=== PATIENT | female | born 1990 | race Caucasian/White ===

== ENCOUNTER → 2018-04-04 | Outpatient (CLI) | payer OTHER ==
[~2018-04-04] MED LIST: ACET500 PO; AMOX500 PO; BLOOD PRESSURE; CEPH500 PO; CIPR250 PO; CLON.5 PO; CRUTCH3 USE; DIBU30TO PR; ERGO400 PO; ERGO50000 PO; GABA100 PO; HYDACE5 PO; Hair, Skin & N1 EACH PO; LITH300C PO; MEDR150I IM; MELO7.5 PO; METR500 PO; MONT4 PO; MULVITMINE PO; NAPR500 PO; NITR100CA PO; ONDA4 PO; ONDA4ODT MM; ONDA8 PO; OXYACE5T PO; PHENA200 PO; PRAHYD1AE TOP; PRAZ1 PO; PREN-16 PO; PROBIOTIC1 EAC1 PO; PROM25 PO; PSEU120ER PO; TRAZ50 PO; VENL37.5 PO; VENL75ER PO; Xanax0.5 MG PO; [UNRECOGNIZED DRUG - OTHER]
[2018-04-07 23:10] LABS: CHLAMYDIA TRACHOMATIS, NAA Negative (Negative); NEISSERIA GONORRHOEAE, NAA Negative (Negative)
== END | disposition home or self-care (01) ==
LOC: LAB SHORT 16:19 → OLS 16:19
PROVIDERS: Nurse Practitioner Women's Health
DX: Z11.3 Encounter for screening for infections with a predominantly sexual mode of transmission (principal); Z12.4 Encounter for screening for malignant neoplasm of cervix
CPT/HCPCS: 87491; 87591; 87624; G0123

== ENCOUNTER 2018-05-08 19:35 | Emergency (ER) | payer OTHER ==
[~2018-05-08] VITALS: Ht 162.6 cm; Wt 122.5 kg
[2018-05-08] MEDS ORDERED: LAMO100 PO (19:41)
[2018-05-08] MEDS ORDERED: PRAZ2 PO (19:41)
[2018-05-08] MEDS ORDERED: DULO30 (19:41)
[2018-05-08] MEDS ORDERED: TRAZ50 PO (19:41)
== END 2018-05-08 20:18 | disposition home or self-care (01) ==
LOC: ER 19:35
DX: S93.402A Sprain of unspecified ligament of left ankle, initial encounter (principal); F32.9 Major depressive disorder, single episode, unspecified; Z88.2 Allergy status to sulfonamides; Z91.040 Latex allergy status; Z91.018 Allergy to other foods; Z91.048 Other nonmedicinal substance allergy status; Z79.899 Other long term (current) drug therapy; W19.XXXA Unspecified fall, initial encounter
CPT/HCPCS: 73610; 99283-25

== ENCOUNTER 2018-10-15 11:18 | Emergency (ER) | payer OTHER ==
[~2018-10-15] VITALS: Ht 162.6 cm; Wt 110.7 kg
[~2018-10-15 11:18] MED LIST changes: +DULO30; +LAMO100 PO; +PRAZ2 PO
[2018-10-15] MEDS ORDERED: CHLO10T PO (12:11)
[2018-10-15] MEDS ORDERED: CLON.1 PO (12:11)
== END 2018-10-15 12:52 | disposition home or self-care (01) ==
LOC: ER 11:18
DX: G43.909 Migraine, unspecified, not intractable, without status migrainosus (principal); Z88.2 Allergy status to sulfonamides; Z91.040 Latex allergy status; Z88.8 Allergy status to other drugs, medicaments and biological substances; Z91.018 Allergy to other foods; Z79.899 Other long term (current) drug therapy; F31.9 Bipolar disorder, unspecified; F43.10 Post-traumatic stress disorder, unspecified
CPT/HCPCS: 96374; 96375; 99283-25; J0780; J1200; J1885; J7120

== ENCOUNTER → 2018-10-18 | Outpatient (CLI) | payer OTHER ==
[~2018-10-18] MED LIST changes: +Ambien5 MG PO; +CHLO10T PO; +CLON.1 PO; +DULO60; +IBUP400
== END | disposition home or self-care (01) ==
LOC: LAB 17:49 → LAB SHORT 17:49
DX: N89.8 Other specified noninflammatory disorders of vagina (principal)
CPT/HCPCS: 87070; 87147; 87205

== ENCOUNTER 2018-10-25 17:31 | Emergency (ER) | payer OTHER ==
[~2018-10-25] VITALS: Ht 162.6 cm; Wt 111.1 kg
[~2018-10-25 17:31] MED LIST changes: -Ambien5 MG PO; -DULO60; -IBUP400
[2018-10-25] MEDS ORDERED: DULO60 (17:44)
[2018-10-25 18:11] LABS: BASOPHILS ABSOLUTE AUTO 0.03 K/mm3 (0.00-0.23); BASOPHILS PERCENT AUTO 0 % (0-2); EOSINOPHILS ABSOLUTE AUTO 0.03 K/mm3 (0.00-0.68); EOSINOPHILS PERCENT AUTO 0 % (0-6); Hematocrit 42.2 % (33.0-51.0); Hemoglobin 13.7 g/dL (11.5-16.0); IMMATURE GRAN ABSOLUTE AUTO 0.05 K/mm3 (0.00-0.10); IMMATURE GRAN PERCENT AUTO 0 % (0-1); LYMPHOCYTES ABSOLUTE AUTO 1.55 K/mm3 (0.84-5.20); LYMPHOCYTES PERCENT AUTO 11 % (21-46); MONOCYTES ABSOLUTE AUTO 0.75 K/mm3 (0.16-1.47); MONOCYTES PERCENT AUTO 5 % (4-13); Mean Corpuscular HGB 27.3 pg (26.0-34.0); Mean Corpuscular HGB Conc 32.5 g/dL (31.5-36.5); Mean Corpuscular Volume 84 fL (80-100); Mean Platelet Volume 9.7 fL (9.1-12.4); NEUTROPHILS ABSOLUTE AUTO 11.87 K/mm3 (1.96-9.15); NEUTROPHILS PERCENT AUTO 83 % (41-73); Platelet Count 353 K/mm3 (150-400); RDW Coefficient Variation 13.7 % (11.7-14.2); RDW Standard Deviation 42.2 fL (35.1-46.3); Red Blood Cell Count 5.01 M/mm3 (3.80-5.20); White Blood Cell Count 14.28 K/mm3 (4.00-11.30)
[2018-10-25 18:41] LABS: Alanine Aminotransfer (ALT/SGP 13 U/L (12-78); Albumin, Blood 3.8 g/dL (3.4-5.0); Albumin/Globulin Ratio 0.9 (0.8-1.8); Alk Phos 133 U/L (50-136); Anion Gap 6 mmol/L (6-16); Aspartate Aminotrans (AST/SGOT 10 U/L (12-37); Bilirubin, Total 0.7 mg/dL (0.1-1.0); Blood Urea Nitrogen 11 mg/dL (8-24); Bun/Creatinine Ratio 10.7 (12.0-20.0); CO2, Blood 25 mmol/L (21-32); Calcium, Blood 8.8 mg/dL (8.5-10.1); Chloride, Blood 106 mmol/L (98-108); Creatinine, Blood 1.03 mg/dL (0.40-1.00); Globulin, Blood 4.2 g/dL (2.2-4.0); Glomerular Filtration Rate >60 (60-); Glucose, Blood 105 mg/dL (70-99); Potassium, Blood 3.5 mmol/L (3.5-5.5); Sodium, Blood 137 mmol/L (136-145)
[2018-10-25 19:23] LABS: U Amphetamine Screen Not Detected; U Barbituate Screen Not Detected; U Benzodiazapine Screen Not Detected; U Buprenorphine Screen Not Detected; U Cannabinoids Screen Not Detected; U Cocaine Screen Not Detected; U Methadone Screen Not Detected; U Methamphetamine Screen Not Detected; U Opiates Screen Not Detected; U Oxycodone Screen Not Detected; U Phencyclidine Screen Not Detected; U Propoxyphene Screen Not Detected
[2018-10-25] MEDS ORDERED: Ambien5 MG PO (21:03)
== END 2018-10-25 21:16 | disposition home or self-care (01) ==
LOC: ER 17:31
PROVIDERS: Physician Assistant
DX: F32.9 Major depressive disorder, single episode, unspecified (principal); Z88.2 Allergy status to sulfonamides; Z88.8 Allergy status to other drugs, medicaments and biological substances; Z91.040 Latex allergy status; Z91.018 Allergy to other foods; Z79.899 Other long term (current) drug therapy; G43.909 Migraine, unspecified, not intractable, without status migrainosus
CPT/HCPCS: 80053; 85025; 99284; Q3014

== ENCOUNTER 2018-11-02 11:33 | Emergency (ER) | payer OTHER ==
[~2018-11-02] VITALS: Ht 165.1 cm; Wt 90.7 kg
[~2018-11-02 11:33] MED LIST changes: +Ambien5 MG PO; +DULO60
[2018-11-03] MEDS ORDERED: IBUP400 (11:26)
== END 2018-11-02 13:22 | disposition home or self-care (01) ==
LOC: ER 11:33
DX: S83.91XA Sprain of unspecified site of right knee, initial encounter (principal); S93.401A Sprain of unspecified ligament of right ankle, initial encounter; F31.9 Bipolar disorder, unspecified; F43.10 Post-traumatic stress disorder, unspecified; Z88.2 Allergy status to sulfonamides; Z91.02 Food additives allergy status; Z91.040 Latex allergy status; W10.9XXA Fall (on) (from) unspecified stairs and steps, initial encounter
CPT/HCPCS: 29505; 73564; 73610; 99283-25

== ENCOUNTER 2018-11-03 09:48 | Day surgery (SDC) | payer OTHER ==
[~2018-11-03] VITALS: Ht 162.6 cm; Wt 110.9 kg
--- NOTE | 2018-11-03 11:19 | NUR ---
11/03/18 1119 Anastasia Chow PT UPDATED IN LOBBY BY RXS AND MATT RIVERA OF DELAY IN ADMIT.
[2018-11-03] MEDS ORDERED: IBUP400 (11:26)
--- NOTE | 2018-11-03 14:38 | NUR ---
11/03/18 1437 Jarek Lamb PATIENT INTO SDU, RESTING IN RECLINER, REPORTING 7/10 PAIN, PER MD ORDERS GAVE IV PAIN MEDICATION, WILL CONTINUE TO MONITOR. PATIENT VSS, TOLERATING PO FLUIDS WELL PATIENTS IS AT CHAIRSIDE
== END 2018-11-03 15:50 | disposition home or self-care (01) ==
LOC: ORSCSDS 09:48
PROVIDERS: Orthopaedic Surgery
PROC: 0MQR0ZZ Repair Left Ankle Bursa and Ligament, Open Approach (ICD-10-PCS; principal; 2018-11-03 11:05)
PROC: 0SBG4ZZ Excision of Left Ankle Joint, Percutaneous Endoscopic Approach (ICD-10-PCS; principal; 2018-11-03 11:05)
DX: S93.402A Sprain of unspecified ligament of left ankle, initial encounter (principal); M65.9 Synovitis and tenosynovitis, unspecified; E66.01 Morbid (severe) obesity due to excess calories; Z68.41 Body mass index [BMI] 40.0-44.9, adult; F31.9 Bipolar disorder, unspecified; Z79.899 Other long term (current) drug therapy
CPT/HCPCS: C1713; J0171; J0690; J1100; J1885; J2250; J2405; J2795; J3010; J7120

== ENCOUNTER → 2018-11-10 | Outpatient (CLI) | payer OTHER ==
[~2018-11-10] MED LIST changes: +IBUP400
== END | disposition home or self-care (01) ==
LOC: LAB SHORT 17:34 → LAB 17:34
DX: N89.8 Other specified noninflammatory disorders of vagina (principal)
CPT/HCPCS: 87070; 87147; 87205

== ENCOUNTER 2019-02-19 19:13 | Emergency (ER) | payer OTHER ==
[~2019-02-19] VITALS: Ht 162.6 cm; Wt 108.4 kg
== END 2019-02-19 21:30 | disposition home or self-care (01) ==
LOC: ER 19:13
DX: T42.6X1A Poisoning by other antiepileptic and sedative-hypnotic drugs, accidental (unintentional), initial encounter (principal); Z88.2 Allergy status to sulfonamides; Z88.8 Allergy status to other drugs, medicaments and biological substances; Z91.018 Allergy to other foods; Z91.040 Latex allergy status; Z79.899 Other long term (current) drug therapy; F31.9 Bipolar disorder, unspecified; G43.909 Migraine, unspecified, not intractable, without status migrainosus; F43.10 Post-traumatic stress disorder, unspecified
CPT/HCPCS: 99284

== ENCOUNTER → 2019-04-04 | Outpatient (CLI) | payer OTHER ==
[~2019-04-04] MED LIST changes: +Benztropine Mesy1 MG PO; +Cymbalta60 MG PO; +Excedrin Extra1 EACH PO; +GABA300 PO; +Lamotrigine100 MG PO; +NEXPLANON68 MG ID; +Ondansetron Odt8 MG PO; +PROAIR RESPICL90 MCG INH; +ZIPR60 PO; +ZOLP5 PO
== END ==
LOC: EDSTATUS 10:38 → LAB SHORT 13:30 → LAB 13:30
DX: A74.9 Chlamydial infection, unspecified (principal)
CPT/HCPCS: 87070; 87205

== ENCOUNTER → 2019-05-08 | Outpatient (CLI) | payer OTHER ==
[2019-05-10 15:18] LABS: HPV 16 Negative (Negative); HPV 18 Negative (Negative); HPV OTHER HR TYPES Negative (Negative)
[2019-05-11 02:06] LABS: CHLAMYDIA TRACHOMATIS, NAA Negative (Negative); NEISSERIA GONORRHOEAE, NAA Negative (Negative)
== END | disposition home or self-care (01) ==
LOC: LAB 17:42 → LAB SHORT 17:42
PROVIDERS: Nurse Practitioner Women's Health
DX: Z12.4 Encounter for screening for malignant neoplasm of cervix (principal); Z91.89 Other specified personal risk factors, not elsewhere classified; Z20.2 Contact with and (suspected) exposure to infections with a predominantly sexual mode of transmission; Z11.3 Encounter for screening for infections with a predominantly sexual mode of transmission; Z72.89 Other problems related to lifestyle
CPT/HCPCS: 87491; 87591; 87624; G0123

== ENCOUNTER 2019-07-11 10:51 | Observation (INO) | payer OTHER ==
[~2019-07-11] VITALS: Ht 162.6 cm; Wt 108.9 kg
[~2019-07-11 10:51] MED LIST changes: -Benztropine Mesy1 MG PO; -Cymbalta60 MG PO; -Excedrin Extra1 EACH PO; -GABA300 PO; -Lamotrigine100 MG PO; -NEXPLANON68 MG ID; -Ondansetron Odt8 MG PO; -PROAIR RESPICL90 MCG INH; -ZIPR60 PO; -ZOLP5 PO
[2019-07-11] MEDS ORDERED: GABA300 PO (12:00)
[2019-07-11] MEDS ORDERED: ZOLP5 PO (12:03)
[2019-07-11] MEDS ORDERED: Benztropine Mesy1 MG PO (12:03)
[2019-07-11] MEDS ORDERED: MELO7.5 PO (12:03)
[2019-07-11] MEDS ORDERED: ZIPR60 PO (12:04)
[2019-07-11] MEDS ORDERED: Ondansetron Odt8 MG PO (12:04)
[2019-07-11] MEDS ORDERED: PROAIR RESPICL90 MCG INH (12:27)
[2019-07-11] MEDS ORDERED: Cymbalta60 MG PO (12:28)
[2019-07-11] MEDS ORDERED: CLON.1 PO (12:28)
[2019-07-11] MEDS ORDERED: LAMO100 PO (12:28)
[2019-07-11] MEDS ORDERED: Excedrin Extra1 EACH PO (12:28)
[2019-07-11] MEDS ORDERED: Lamotrigine100 MG PO (16:03)
[2019-07-11] MEDS ORDERED: NEXPLANON68 MG ID (16:11)
== END 2019-07-12 15:30 | disposition home or self-care (01) ==
LOC: ER 10:51 → ERHOLD 10:52 → UNDODEPER 07-12 15:06 → ERHOLD 07-12 15:30
PROVIDERS: ADMIT Emergency Medicine
DX: F31.5 Bipolar disorder, current episode depressed, severe, with psychotic features (principal); F43.10 Post-traumatic stress disorder, unspecified; G43.909 Migraine, unspecified, not intractable, without status migrainosus; Z88.2 Allergy status to sulfonamides; Z91.018 Allergy to other foods; Z91.040 Latex allergy status; Z79.899 Other long term (current) drug therapy; Z79.51 Long term (current) use of inhaled steroids; Z79.82 Long term (current) use of aspirin
CPT/HCPCS: 99285; G0378; Q3014

== ENCOUNTER → 2019-08-30 | Outpatient (CLI) | payer OTHER, MEDICAID ==
[~2019-08-30] MED LIST changes: +Benztropine Mesy1 MG PO; +Clonidine HCl0.1 MG PO; +Cymbalta60 MG PO; +DIVA250ER PO; +DIVA500ER PO; +Excedrin Extra1 EACH PO; +GABA300 PO; +LATUDA120 MG PO; +Lamotrigine100 MG PO; +NEXPLANON68 MG ID; +Ondansetron Odt8 MG PO; +PROAIR RESPICL90 MCG INH; +ZIPR60 PO; +ZOLP10 PO; +ZOLP5 PO
[2019-08-30 11:36] LABS: Candida species (DNA Probe) Negative (NEGATIVE); G. vaginalis (DNA Probe) Positive (NEGATIVE); T. vaginalis (DNA Probe) Negative (NEGATIVE)
[2019-08-31 07:07] LABS: HIV SCREEN 4TH GENERATION WRFX Non Reactive (Non Reactive)
[2019-09-02 01:06] LABS: HBSAG SCREEN Negative (Negative); HEP A AB, IGM Negative (Negative); HEP B CORE AB, TOT Negative (Negative); HEP C VIRUS AB <0.1 (0.0-0.9)
[2019-09-02 04:06] LABS: CHLAMYDIA TRACHOMATIS, NAA Negative (Negative); NEISSERIA GONORRHOEAE, NAA Negative (Negative)
== END | disposition home or self-care (01) ==
LOC: LAB SHORT 09:19 → LAB 09:19
PROVIDERS: Physician Assistant
DX: N72 Inflammatory disease of cervix uteri (principal); N76.0 Acute vaginitis
CPT/HCPCS: 86592; 86704; 86708; 86803; 87340; 87389; 87480; 87491; 87510; 87591; 87660

== ENCOUNTER 2019-10-01 15:30 | Inpatient (IN) | payer OTHER ==
[~2019-10-01] VITALS: Ht 162.6 cm; Wt 109.7 kg
[~2019-10-01 15:30] MED LIST changes: -Clonidine HCl0.1 MG PO; -DIVA250ER PO; -DIVA500ER PO; -LATUDA120 MG PO; -ZOLP10 PO
[2019-10-01 16:06] LABS: BASOPHILS ABSOLUTE AUTO 0.05 K/mm3 (0.00-0.23); BASOPHILS PERCENT AUTO 1 % (0-2); EOSINOPHILS ABSOLUTE AUTO 0.07 K/mm3 (0.00-0.68); EOSINOPHILS PERCENT AUTO 1 % (0-6); Hemoglobin 13.8 g/dL (11.5-16.0); IMMATURE GRAN ABSOLUTE AUTO 0.03 K/mm3 (0.00-0.10); IMMATURE GRAN PERCENT AUTO 0 % (0-1); LYMPHOCYTES ABSOLUTE AUTO 1.95 K/mm3 (0.84-5.20); LYMPHOCYTES PERCENT AUTO 18 % (21-46); MONOCYTES PERCENT AUTO 8 % (4-13); Mean Corpuscular HGB 27.7 pg (26.0-34.0); Mean Corpuscular HGB Conc 32.1 g/dL (31.5-36.5); Mean Corpuscular Volume 86 fL (80-100); Mean Platelet Volume 9.5 fL (9.1-12.4); NEUTROPHILS ABSOLUTE AUTO 7.83 K/mm3 (1.96-9.15); NEUTROPHILS PERCENT AUTO 72 % (41-73); Platelet Count 346 K/mm3 (150-400); RDW Coefficient Variation 13.3 % (11.7-14.2); RDW Standard Deviation 41.9 fL (35.1-46.3); Red Blood Cell Count 4.98 M/mm3 (3.80-5.20); White Blood Cell Count 10.83 K/mm3 (4.00-11.30)
[2019-10-01] MEDS ORDERED: LATUDA120 MG PO (16:20)
[2019-10-01] MEDS ORDERED: DIVA250ER PO (16:21)
[2019-10-01] MEDS ORDERED: Clonidine HCl0.1 MG PO (16:27)
[2019-10-01] MEDS ORDERED: DIVA500ER PO (16:28)
[2019-10-01] MEDS ORDERED: LAMO100 PO ×2 (16:29→17:06)
[2019-10-01 16:31] LABS: Alanine Aminotransfer (ALT/SGP 12 U/L (12-78); Albumin, Blood 3.5 g/dL (3.4-5.0); Albumin/Globulin Ratio 0.9 (0.8-1.8); Alk Phos 112 U/L (50-136); Anion Gap 12 mmol/L (6-16); Aspartate Aminotrans (AST/SGOT 10 U/L (12-37); Bilirubin, Total 0.3 mg/dL (0.1-1.0); Blood Urea Nitrogen 13 mg/dL (8-24); Bun/Creatinine Ratio 16.1 (12.0-20.0); CO2, Blood 19 mmol/L (21-32); Chloride, Blood 106 mmol/L (98-108); Creatinine, Blood 0.81 mg/dL (0.40-1.00); Ethanol (Alcohol), Blood, Med <3 mg/dL; Glomerular Filtration Rate >60 (60-); Glucose, Blood 115 mg/dL (70-99); Potassium, Blood 3.6 mmol/L (3.5-5.5); Salicylate <1.7 mg/dL (2.8-20.0); Sodium, Blood 137 mmol/L (136-145); Total Protein, Blood 7.5 g/dL (6.4-8.2)
[2019-10-01 16:32] LABS: Acetaminophen, Random <2.0 ug/mL (10.0-30.0)
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
--- NOTE | 2019-10-01 19:11 | NUR ---
ASSUMED CARE/FOCUSED ASSESSMENT/SUMMARY PT CAME TO ICU AT 1644 ALERT AND ORIENTED. SHE IS EXTREEMLY DIZZY AND NAUSEOUS. EYES CLOSED, NOT MOVING, UNABLE TO MOVE TO SIGN PAPERWORK. NO COMPLAINTS OF PAIN OR SOB, VENTILATING FINE. VITALS ARE STABLE, SHE IS ON ROOM AIR. PAPERWORK HAS BEEN COMPLETED AND PLACED INTO CHART. THE Q4H INTERVENTION CHECKLIST IS LISTED "HIGH RISK..." BUT THE PT IS MODERATE RISK, AND THERE SHE IS ON THE CENTRAL MONITORING CAMERA. BED IS LOW AND LOCKED. CALL LIGHT WITHIN REACH. SHE DENIES SUICIDAL IDEATION CURRENTLY. SHE FEELS REMORSEFUL ABOUT HER ACTIONS.
[2019-10-01 21:09] LABS: Source, Urine Clean Catch
[2019-10-01 21:11] LABS: Appearance, Urine Clear (Clear); Bilirubin, Urine Neg (Neg); Blood, Urine Neg (Neg); Color, Urine Yellow (P-Yellow); Glucose Qualitative, Urine Neg (Neg); Ketones, Urine 3+ (Neg); Leukocyte Esterase, Urine 3+ (Neg); Nitrite, Urine Neg (Neg); Protein, Urine Neg (Neg); Specific Gravity, Urine 1.015 (1.003-1.022); Urobilinogen, Urine NORM (Normal); pH, Urine 6.5 (5.0-8.0)
[2019-10-01 21:22] LABS: Bacteria Many /hpf; Red Blood Cells, Urine 0-2 /hpf (0-2); Squamous Epithelial Cells Mod /hpf (Few)
[2019-10-01 21:24] LABS: U Amphetamine Screen Not Detected; U Barbituate Screen Not Detected; U Benzodiazapine Screen Not Detected; U Buprenorphine Screen Not Detected; U Cannabinoids Screen Not Detected; U Cocaine Screen Not Detected; U Methadone Screen Not Detected; U Methamphetamine Screen Not Detected; U Opiates Screen Not Detected; U Oxycodone Screen Not Detected; U Phencyclidine Screen Not Detected; U Propoxyphene Screen Not Detected
--- NOTE | 2019-10-01 22:20 | NUR ---
POSION CONTROL ON PHONE FOR UPDATE UPDATE GIVEN. CONTINUE TO MONITOR AND REPORT CHANGE IN PATIENT CONDITION.
[2019-10-02 04:13] LABS: Hematocrit 35.9 % (33.0-51.0); Hemoglobin 11.6 g/dL (11.5-16.0); Mean Corpuscular HGB Conc 32.3 g/dL (31.5-36.5); Mean Corpuscular Volume 87 fL (80-100); Mean Platelet Volume 9.4 fL (9.1-12.4); Platelet Count 279 K/mm3 (150-400); RDW Coefficient Variation 13.4 % (11.7-14.2); RDW Standard Deviation 42.2 fL (35.1-46.3); Red Blood Cell Count 4.15 M/mm3 (3.80-5.20); White Blood Cell Count 12.07 K/mm3 (4.00-11.30)
[2019-10-02 04:41] LABS: Anion Gap 7 mmol/L (6-16); Blood Urea Nitrogen 7 mg/dL (8-24); Bun/Creatinine Ratio 10.8 (12.0-20.0); CO2, Blood 24 mmol/L (21-32); Calcium, Blood 8.2 mg/dL (8.5-10.1); Chloride, Blood 108 mmol/L (98-108); Creatinine, Blood 0.65 mg/dL (0.40-1.00); Glomerular Filtration Rate >60 (60-); Glucose, Blood 101 mg/dL (70-99); Potassium, Blood 3.8 mmol/L (3.5-5.5); Sodium, Blood 139 mmol/L (136-145)
--- NOTE | 2019-10-02 05:38 | NUR ---
SHIFT SUMMARY : RESTS QUIETLY WHEN UNDISTURBED. MONITOR INTACT SHOWING SINUS RHYTHM/SINUS TACH HEART RATE 80'S-100'S CONTINUES TO CO NAUSEA AND DIZZINESS. MEDICATED WITH ZOFRAN IV NO FURTHER EMESIS SINCE BEFINING OF SHIFT. LUNG SOUNDS REMAIN CLEAR RESPIRATIONS REGULAR AND EASY ON ROOM AIR SPO2 96-100%. ABDOMEN SOFT WITH NOWEL SOUNDS FOUR QUADS. VOIDS MAGDALENA URINE PER BEDPAN. INCONTINENT WHEN COUGHS OR GAGS. LINEN CHANGE WITH PARTIL BEDBATH . ASSIASTS WITH REPOSITIONING. DENIES FURTHER INTENT TO HURT OR HARM SELF. CONTINUE TO MONITOR AND REPORT CHANGE IN PATIENT CONDITION. COOPERATIVE TO CARES.
--- NOTE | 2019-10-02 07:45 | NUR ---
ASSUMED CARE PT. ALERT AND ORIENTED THIS AM, REPORTS FEELING DIZZY AT TIMES WITH OCCASIONAL VOMITING. PT. DENIES PAIN, NO SEIZURES NOTED AT THIS TIME, SEIZURE PADS IN PLACE FOR SAFETY. PT. COOPERATIVE WITH CARE, TEARFUL AT TIMES. PT. VSS THIS AM. VANDANA.
--- NOTE | 2019-10-02 10:45 | NUR ---
[facility] TEAM IN TO SEE PT, PT. TO SEE DR. STARK THIS AFTERNOON
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
--- NOTE | 2019-10-02 15:30 | NUR ---
DR. THOMPSONUFF IN TO SEE PT, SUICIDE PRECAUTIONS DROPPED WELL 2MD HOLD. PT. TO TRANSFER TO MEDICAL FLOOR. PER DR. AGUILA, PT TO CONTINUE ON NS INFUSION UPON TRANSFER, VSS.
--- NOTE | 2019-10-02 16:07 | NUR ---
REPORT GIVEN TO KAYLEEN SWANN, PT ABLE TO STAND AND TRANSFER TO WHEELCHAIR WITH 1 PERSON ASSIST. REMAINS DIZZY. ALL BELONGINGS TAKEN TO MEDICAL FLOOR WITH PT. VSS UPON TRANSFER.
--- NOTE | 2019-10-02 16:48 | NUR ---
PT ARRIVED TO THE MEDICAL FLOOR VIA WHEELCHAIR, A/OX3 PLEASANT AND COOPERATIVE, PT IS UP WITH ASSIST WEAK ON HER FEET AND UNSTEADY, REPORTS CONTINUED DIZZINESS WHEN STANDING AND BLURRED VISION, THE PT WAS ORIENTED TO THE ROOM LAYOUT AND CALL SYSTEM, PT WAS ASSIISTED TO THE RECLINER PER HER REQUEST, PT APPEARS TO BE BREATHING EASILY ON RA, CALL LIGHT IN REACH WILL CONTINUE TO MONITOR AND ASSESS FOR CHANGES
--- NOTE | 2019-10-03 06:37 | NUR ---
HAS BEEN RESTING QUIETLY MOST OF SHIFT, DENIED SUICIDAL IDEATIONS. AFFECT CHEERFUL THIS AM WHEN ASSISTED TO BATHROOM. IVF INFUSING PER MD ORDERS. STATED FELT "BETTER " THIS AM. CALL LIGHT IN REACH.
[2019-10-03] MEDS ORDERED: ZOLP10 PO (11:35)
--- NOTE | 2019-10-03 12:18 | NUR ---
PT DISCHARGED THE PT VERBALIZED UNDERSTANDING OF THE DC INSTRUCTIONS, APPOINTMENTS MADE FOR THE PT PRIOR TO DC, PERSCRIPTIONS FAXED TO [facility] REQUESTED, THE PT DECLINED WHEELCHAIR, AMBULATED OUT STEADY ON HER FEET, CCOMPANIED BY FAMILY, PT APPEARED TO BE BREATHING EASILY AT THE TIME OF DC
== END 2019-10-03 11:59 | disposition home or self-care (01) | DRG 918 ==
LOC: ER 15:30 → ICUW 15:49 → MEDS 10-02 15:54 → ENPENDDIS 10-03 11:24 → MEDS 10-03 11:59
PROVIDERS: Emergency Medicine; ADMIT Internal Medicine
DX: T42.6X2A Poisoning by other antiepileptic and sedative-hypnotic drugs, intentional self-harm, initial encounter (principal); F31.81 Bipolar II disorder; Z68.41 Body mass index [BMI] 40.0-44.9, adult; E66.9 Obesity, unspecified; F43.10 Post-traumatic stress disorder, unspecified; M79.7 Fibromyalgia
CPT/HCPCS: 36415; 80048; 80053; 80175; 81001; 81025; 85025; 85027; 87086; 93005; 93010; 96374; 99285-25; G0480; J2405; J7030

== ENCOUNTER → 2020-01-20 | Outpatient (CLI) | payer OTHER ==
[~2020-01-20] MED LIST changes: +Clonidine HCl0.1 MG PO; +DIVA250ER PO; +DIVA500ER PO; +LATUDA120 MG PO; +ZOLP10 PO
== END | disposition home or self-care (01) ==
LOC: LAB SHORT 15:07 → LAB 15:07
DX: R30.9 Painful micturition, unspecified (principal)
CPT/HCPCS: 87077; 87086; 87186

== ENCOUNTER → 2020-03-27 | Outpatient (CLI) | payer OTHER ==
[2020-03-29 10:09] LABS: CHLAMYDIA BY NAA Negative (Negative); GONOCOCCUS BY NAA Negative (Negative); TRICH VAG BY NAA Negative (Negative)
== END ==
LOC: LAB UCHC 10:10 → LAB SHORT 10:10
PROVIDERS: Registered Nurse Community Health
DX: Z20.2 Contact with and (suspected) exposure to infections with a predominantly sexual mode of transmission (principal)
CPT/HCPCS: 87491; 87591; 87661

== ENCOUNTER → 2020-06-04 | Outpatient (CLI) | payer OTHER ==
[2020-06-05 06:17] LABS: Candida species (DNA Probe) Positive (NEGATIVE); G. vaginalis (DNA Probe) Negative (NEGATIVE); T. vaginalis (DNA Probe) Negative (NEGATIVE)
[2020-06-06 03:08] LABS: CHLAMYDIA TRACHOMATIS, NAA Negative (Negative); NEISSERIA GONORRHOEAE, NAA Negative (Negative)
== END ==
LOC: LAB 19:11 → LAB SHORT 19:11
PROVIDERS: Nurse Practitioner
DX: L29.8 Other pruritus (principal)
CPT/HCPCS: 87070; 87205; 87480; 87491; 87510; 87591; 87660

== ENCOUNTER → 2020-09-20 | Outpatient (CLI) | payer OTHER ==
[2020-09-20 14:23] LABS: Candida species (DNA Probe) Positive (NEGATIVE); G. vaginalis (DNA Probe) Positive (NEGATIVE); T. vaginalis (DNA Probe) Negative (NEGATIVE)
== END ==
LOC: LAB 08:20
PROVIDERS: Family Medicine
DX: N76.0 Acute vaginitis (principal)
CPT/HCPCS: 87480; 87510; 87660

== ENCOUNTER 2021-11-08 18:54 | Emergency (ER) | payer OTHER ==
[~2021-11-08] VITALS: Ht 162.6 cm; Wt 79.4 kg
== END 2021-11-08 20:00 | disposition left against medical advice (07) ==
LOC: ER 18:54
DX: S00.06XA Insect bite (nonvenomous) of scalp, initial encounter (principal); Z53.21 Procedure and treatment not carried out due to patient leaving prior to being seen by health care provider
CPT/HCPCS: 99282

== ENCOUNTER 2021-11-28 18:15 | Observation (INO) | payer OTHER ==
[~2021-11-28] VITALS: Ht 162.6 cm; Wt 75.3 kg
[2021-11-28] MEDS ORDERED: CHLO50 (18:34)
[2021-11-28 18:50] LABS: BASOPHILS ABSOLUTE AUTO 0.02 K/mm3 (0.00-0.23); BASOPHILS PERCENT AUTO 0 % (0-2); EOSINOPHILS ABSOLUTE AUTO 0.04 K/mm3 (0.00-0.68); EOSINOPHILS PERCENT AUTO 1 % (0-6); Hematocrit 38.2 % (33.0-51.0); Hemoglobin 12.5 g/dL (11.5-16.0); IMMATURE GRAN ABSOLUTE AUTO 0.03 K/mm3 (0.00-0.10); IMMATURE GRAN PERCENT AUTO 0 % (0-1); LYMPHOCYTES ABSOLUTE AUTO 1.29 K/mm3 (0.84-5.20); LYMPHOCYTES PERCENT AUTO 15 % (21-46); MONOCYTES PERCENT AUTO 7 % (4-13); Mean Corpuscular HGB Conc 32.7 g/dL (31.5-36.5); Mean Corpuscular Volume 86 fL (80-100); Mean Platelet Volume 9.3 fL (9.1-12.4); NEUTROPHILS ABSOLUTE AUTO 6.85 K/mm3 (1.96-9.15); NEUTROPHILS PERCENT AUTO 78 % (41-73); Platelet Count 302 K/mm3 (150-400); RDW Coefficient Variation 13.3 % (11.7-14.2); RDW Standard Deviation 41.3 fL (35.1-46.3); Red Blood Cell Count 4.47 M/mm3 (3.80-5.20); White Blood Cell Count 8.83 K/mm3 (4.00-11.30)
[2021-11-28 19:37] LABS: Ethanol (Alcohol), Blood, Med <3 mg/dL
[2021-11-28 19:38] LABS: Acetaminophen, Random <2.0 ug/mL (10.0-30.0); Alanine Aminotransfer (ALT/SGP 14 U/L (12-78); Albumin, Blood 3.5 g/dL (3.4-5.0); Albumin/Globulin Ratio 1.1 (0.8-1.8); Alk Phos 99 U/L (50-136); Anion Gap 7 mmol/L (6-16); Aspartate Aminotrans (AST/SGOT 10 U/L (12-37); Bilirubin, Total 0.4 mg/dL (0.1-1.0); Blood Urea Nitrogen 13 mg/dL (8-24); Bun/Creatinine Ratio 16.7 (12.0-20.0); CO2, Blood 26 mmol/L (21-32); Calcium, Blood 8.7 mg/dL (8.5-10.1); Chloride, Blood 107 mmol/L (98-108); Creatinine, Blood 0.78 mg/dL (0.40-1.00); Globulin, Blood 3.1 g/dL (2.2-4.0); Glomerular Filtration Rate >60 (60-); Glucose, Blood 107 mg/dL (70-99); Potassium, Blood 3.4 mmol/L (3.5-5.5); Salicylate <1.7 mg/dL (2.8-20.0); Sodium, Blood 140 mmol/L (136-145); Total Protein, Blood 6.6 g/dL (6.4-8.2)
[2021-11-29 02:30] LABS: Source, Urine Clean Catch
[2021-11-29 02:37] LABS: Bilirubin, Urine Neg (Neg); Blood, Urine Neg (Neg); Glucose Qualitative, Urine Neg (Neg); Ketones, Urine 3+ (Neg); Leukocyte Esterase, Urine Neg (Neg); Nitrite, Urine Neg (Neg); Protein, Urine Neg (Neg); Specific Gravity, Urine 1.025 (1.003-1.022); Urobilinogen, Urine NORM (Normal)
[2021-11-29 02:47] LABS: Appearance, Urine Hazy (Clear); Bacteria Not Seen /hpf; Color, Urine Yellow (P-Yellow); Mucus Heavy (0-Heavy); Red Blood Cells, Urine Not Seen /hpf (0-2); Squamous Epithelial Cells Rare /hpf (Few); White Blood Cells, Urine Rare /hpf (0-5)
[2021-11-29 02:54] LABS: U Amphetamine Screen DETECTED; U Barbituate Screen Not Detected; U Benzodiazapine Screen Not Detected; U Buprenorphine Screen Not Detected; U Cannabinoids Screen Not Detected; U Cocaine Screen Not Detected; U Methadone Screen Not Detected; U Methamphetamine Screen DETECTED; U Opiates Screen Not Detected; U Oxycodone Screen Not Detected; U Phencyclidine Screen Not Detected; U Propoxyphene Screen Not Detected
[2021-11-29 04:05] LABS: BASOPHILS ABSOLUTE AUTO 0.02 K/mm3 (0.00-0.23); BASOPHILS PERCENT AUTO 0 % (0-2); EOSINOPHILS ABSOLUTE AUTO 0.05 K/mm3 (0.00-0.68); EOSINOPHILS PERCENT AUTO 1 % (0-6); Hematocrit 33.6 % (33.0-51.0); Hemoglobin 11.2 g/dL (11.5-16.0); IMMATURE GRAN ABSOLUTE AUTO 0.01 K/mm3 (0.00-0.10); IMMATURE GRAN PERCENT AUTO 0 % (0-1); LYMPHOCYTES PERCENT AUTO 26 % (21-46); MONOCYTES ABSOLUTE AUTO 0.56 K/mm3 (0.16-1.47); MONOCYTES PERCENT AUTO 8 % (4-13); Mean Corpuscular HGB 29.2 pg (26.0-34.0); Mean Corpuscular HGB Conc 33.3 g/dL (31.5-36.5); Mean Corpuscular Volume 88 fL (80-100); Mean Platelet Volume 9.2 fL (9.1-12.4); NEUTROPHILS ABSOLUTE AUTO 4.52 K/mm3 (1.96-9.15); NEUTROPHILS PERCENT AUTO 65 % (41-73); Platelet Count 260 K/mm3 (150-400); RDW Coefficient Variation 13.5 % (11.7-14.2); RDW Standard Deviation 43.5 fL (35.1-46.3); Red Blood Cell Count 3.83 M/mm3 (3.80-5.20); White Blood Cell Count 6.96 K/mm3 (4.00-11.30)
[2021-11-29 04:23] LABS: Anion Gap 7 mmol/L (6-16); Blood Urea Nitrogen 12 mg/dL (8-24); Bun/Creatinine Ratio 18.2 (12.0-20.0); CO2, Blood 24 mmol/L (21-32); Calcium, Blood 8.3 mg/dL (8.5-10.1); Chloride, Blood 112 mmol/L (98-108); Creatinine, Blood 0.66 mg/dL (0.40-1.00); Glomerular Filtration Rate >60 (60-); Glucose, Blood 98 mg/dL (70-99); Magnesium, Blood 2.1 mg/dL (1.6-2.4); Potassium, Blood 3.6 mmol/L (3.5-5.5); Sodium, Blood 143 mmol/L (136-145)
--- NOTE | 2021-11-29 06:13 | NUR ---
Patient arrived to unit at 2315 via stretcher from the ED. Settled in ICU room; upon inital assessment she is very lethargic- will open eyes with encouragement but will not keep them open. She follows commands, but is not eager to participate in care. Pupils pinpoint but reactive. Seizure pads in place. Sinus tachycardia, low 100's. MAP>60. On room air. Abd soft, not distended. Bladder scanned for over 350cc's urine; calderon inserted and urine labs collected after patient attempted to void but could not. Despite bladder scan reading, pt oliguric. Dr. Richards aware, IVF initiated. Oral potassium replacement ordered and given; per poison control goal k>4 mag>2. 12 lead EKG obtained this am.
--- NOTE | 2021-11-29 09:28 | NUR ---
PT'S SISTER IN LAW CALLED TO CHECK IN ON PT. UPDATE WAS GIVEN. PT'S BOYFRIEND CAME TO SEE HER BUT WAS TURNED AWAY TO ALLOW PT TO REST. NOXIOUS STIMULI REQUIRED TO GET PT TO GRUMBLE AT STAFF BUT VERY SOMNOLENT OTHERWISE
--- NOTE | 2021-11-29 10:30 | NUR ---
DR MANUEL ORDERED REPEAT UTOX. CALL TO VERIFY IF HE WANTED SECOND SAMPLE OR USE OF SAME SAMPLE FROM [address] STATED THAT SAMPLE COULD BE A SEND OUT RERUN OF THIS AM. CALL TO LAB WHO STATED THIS COULD BE DONE
--- NOTE | 2021-11-29 11:05 | NUR ---
PT CONTINUES TO REST QUIETLY BUT DID NOD AT STAFF WHEN INFORMED THAT SHE WAS GOING TO BE REPOSITIONED.
--- NOTE | 2021-11-29 11:15 | NUR ---
PT'S SISTER IN LAW CALLED FOR UPDATE AND ASKED IF PT COULD HAVE VISITORS. UPDATED THAT PT WAS STILL SLEEPING AND ASKED THAT WHILE SHE IS RESTING LIKE THIS, WE SHOULD LET HER REST. FAMILY AGREED
--- NOTE | 2021-11-29 12:30 | NUR ---
CALL TO DR MANUEL REGARDING PT'S URINATION STATUS. PORTER CATH IN PLACE WITH ONLY 50CC OUT THIS SHIFT. URINE IS CLEAR YELLOW. DR INSTRUCTED FOR BOLUS OF 500 CC NS.
--- NOTE | 2021-11-29 13:07 | NUR ---
BOLUS OF 500CC NS RUNNING. PT CONTINUES TO REST QUIETLY, APPEARS TO BE SLEEPING AND RESPONDS TO NOXIOUS STIMULI ONLY. BP RUNNING SOFT WITH MAP OF 61. WILL CONTINUE BOLUS AND MONITOR. WILL DISCUSS FURTHER WITH DR MANUEL NEEDED.
[2021-11-29 13:33] LABS: U Amphetamine Screen DETECTED; U Barbituate Screen Not Detected; U Benzodiazapine Screen Not Detected; U Buprenorphine Screen Not Detected; U Cannabinoids Screen Not Detected; U Cocaine Screen Not Detected; U Methadone Screen Not Detected; U Methamphetamine Screen DETECTED; U Opiates Screen Not Detected; U Oxycodone Screen Not Detected; U Phencyclidine Screen Not Detected; U Propoxyphene Screen Not Detected
--- NOTE | 2021-11-29 13:34 | NUR ---
PT AWOKE, STATING SHE WAS THIRSTY. ASKED HER WHAT SHE REMEMBERS. STATES SHE KNOWS SHE TOOK PILLS, CAME TO THE HOSPITAL AND DOESN'T REMEMBER BEYOND THAT. ASKED HER IF SHE FEELS THE WAY SHE DID WHEN SHE TOOK THE PILLS. PT STATES NO. ASKED IF SHE WANTS TO HARM HERSELF NOW AND PT SAID NO. RN AT BEDSIDE PLACING POWERGLIDE FOR FURTHER IV ACCESS. PT DENIES NEEDS AT THIS TIME.
--- NOTE | 2021-11-29 14:00 | NUR ---
CALL TO DR MANUEL TO RELAY PT'S IMPROVED STATUS WITH INCREASE IN URINE OUTPUT AND IMPROVEMENT IN BLOOD PRESSURE. DR ORDERED SECOND FLUID BOLUS AND TO RETURN TO LR FOR MAINTENANCE FLUIDS. PT CONTINUES TO REST AT THIS TIME.
--- NOTE | 2021-11-29 19:27 | NUR ---
SHIFT SUMMARY: PT RESTING QUIETLY MAJORITY OF THE DAY. BP AND URINE OUTPUT IMPROVED AFTER BOLUS OF FLUIDS AND PT DID ROUSE AND SAY A FEW SENTENCES TO STAFF. HAS BEEN PLEASANT AND COOPERATIVE. VSS, QT INTERVAL WNL. NO ACUTE NEEDS. FAMILY HAS BEEN UPDATED ON STATUS.
--- NOTE | 2021-11-29 22:20 | NUR ---
Pt hypotensive at 2200. On assesmeent, she still wakes with verbal stimulation, does not report feeling any differently. Dr. Richards updated; 2L LR bolus ordered, maintenance fluids increased to 150cc/hr. Cont to monitor at this time.
[2021-11-30 06:20] LABS: Anion Gap 5 mmol/L (6-16); Blood Urea Nitrogen 9 mg/dL (8-24); Bun/Creatinine Ratio 16.8 (12.0-20.0); CO2, Blood 26 mmol/L (21-32); Calcium, Blood 8.2 mg/dL (8.5-10.1); Chloride, Blood 108 mmol/L (98-108); Creatinine, Blood 0.54 mg/dL (0.40-1.00); Glomerular Filtration Rate >60 (60-); Glucose, Blood 125 mg/dL (70-99); Potassium, Blood 3.7 mmol/L (3.5-5.5); Sodium, Blood 139 mmol/L (136-145)
--- NOTE | 2021-11-30 08:02 | NUR ---
PT AWAKE, ASKING FOR SIPS OF WATER. ASKED ABOUT PHONE CALLS AND VISITORS. RELAYED TO HER POLICY OF VISITORS AND CALLS WITH SI PTS. AWAITING DR MARIO VISIT TO ORDER TRAY. WILL DISCUSS TELEPSYCH WITH HIM. WHEN ASKED HOW SHE IS FEELING PT STATES TIRED. ASKED IF SHE IS HAVING THOUGHTS OF HARMING HERSELF AND PT DENIES. ASKED HOW SHE FEELS ABOUT THE EVENT AND PT STATES SHE IS EMBARRASSED. PT STATES LOTS OF LIFE STRESSORS LED UP TO EVENT. NO ACUTE NEEDS AT THIS TIME.
--- NOTE | 2021-11-30 14:41 | NUR ---
REPORT GIVEN TO ANIA SWANN. DR MARIO HAS BEEN CALLED TO EVALUATE RECOMMENDATIONS OF TELE PSYCH DOCTOR. PT MOVED VIA WHEELCHAIR TO PCU 8. REMOTE MONITOR CONTACTED TO SWITCH ROOM MONITORING. PT DENIED FURTHER NEEDS OR CONCERNS.
--- NOTE | 2021-11-30 17:40 | NUR ---
SHIFT SUMMARY; ICU TRANSFER IN AFTERNOON, REPORT FROM [facility]. HOLD DROPPED BY DR. MARIO AND DISCHARGE DISCUSSED. IV FLUIDS DC'D WILL MONITOR FOR 2 HOURS AND EVAL FOR HYPOTENSION PRIOR TO DISCHARGE. PT DENIES SI, STATES SHE IS BORDERLINE PERSONALITY AND JUST GOT STRESSED OUT. VERBALIZES SAFTEY AND AGREES TO FOLLOW UP ON WEDNESDAY WITH DR. MARIO AT [facility]. PLEASANT AND COOPERATIVE WITH CARE. WILL CONTINUE TO MONITOR UNTIL DISCHARGE.
== END 2021-11-30 16:00 | disposition home or self-care (01) ==
LOC: ER 18:15 → ICUW 18:16 → PCU 11-30 14:43
PROVIDERS: Family Medicine; Physician Assistant; ADMIT Internal Medicine
DX: T43.3X2A Poisoning by phenothiazine antipsychotics and neuroleptics, intentional self-harm, initial encounter (principal); R00.0 Tachycardia, unspecified; R40.0 Somnolence; F31.9 Bipolar disorder, unspecified; F43.10 Post-traumatic stress disorder, unspecified; E87.6 Hypokalemia
CPT/HCPCS: 36415; 51702; 80048; 80053; 81001; 81025; 83735; 84132; 85025; 93005; 93010; 96365; 96366; 99285-25; A9270; C1751; G0480; J1650; J1940; J3480; J7030; J7040; J7120

== ENCOUNTER → 2022-05-06 | Emergency (ER) | payer OTHER ==
[~2022-05-06] VITALS: Ht 162.6 cm; Wt 74.8 kg
[~2022-05-06] MED LIST changes: +CHLO50
== END ==
LOC: ER 13:08
DX: U07.1 COVID-19 (principal); Z97.5 Presence of (intrauterine) contraceptive device; Z91.018 Allergy to other foods; Z88.2 Allergy status to sulfonamides
CPT/HCPCS: A9270

== ENCOUNTER 2022-05-23 12:41 | Observation (INO) | payer OTHER | END 2022-05-24 15:28 | disposition home or self-care (01) | LOC: ER 12:41 → EOR 20:01 | PROVIDERS: ADMIT Student in an Organized Health Care Education/Training Program | DX: F43.10 Post-traumatic stress disorder, unspecified (principal); T39.1X2A Poisoning by 4-Aminophenol derivatives, intentional self-harm, initial encounter; R45.851 Suicidal ideations; E87.6 Hypokalemia; Z88.2 Allergy status to sulfonamides; Z91.048 Other nonmedicinal substance allergy status; Z91.040 Latex allergy status; Z91.018 Allergy to other foods ==

== ENCOUNTER 2024-03-08 17:53 | Observation (INO) | payer OTHER ==
[~2024-03-08] VITALS: Ht 162.6 cm; Wt 74.3 kg
[~2024-03-08 17:53] MED LIST changes: +CLIN300 PO; +IBUP800 PO
[2024-03-08] MEDS ORDERED: HyDROXyzine HCl 25 MG Tab PO ONE (18:55)
[2024-03-08] MEDS ORDERED: BACLOFEN10 M4 PO (19:07)
[2024-03-08] MEDS ORDERED: ASPIRIN REGIMEN81 MG PO (19:08)
[2024-03-08] MEDS ORDERED: IBUP600 PO (19:08)
[2024-03-08] MEDS ORDERED: OXYC5 (19:09)
[2024-03-08] MEDS ORDERED: APHEN325 M2 PO (19:09)
[2024-03-08] MEDS ORDERED: Vitamin D1000 UNI1 PO (19:09)
[2024-03-08 19:30] LABS: BASOPHILS ABSOLUTE AUTO 0.02 K/mm3 (0.00-0.23); BASOPHILS PERCENT AUTO 0 % (0-2); EOSINOPHILS ABSOLUTE AUTO 0.31 K/mm3 (0.00-0.68); EOSINOPHILS PERCENT AUTO 4 % (0-6); Hematocrit 26.6 % (33.0-51.0); Hemoglobin 8.2 g/dL (11.5-16.0); IMMATURE GRAN ABSOLUTE AUTO 0.09 K/mm3 (0.00-0.10); IMMATURE GRAN PERCENT AUTO 1 % (0-1); LYMPHOCYTES ABSOLUTE AUTO 0.66 K/mm3 (0.84-5.20); LYMPHOCYTES PERCENT AUTO 9 % (21-46); MONOCYTES ABSOLUTE AUTO 0.86 K/mm3 (0.16-1.47); MONOCYTES PERCENT AUTO 12 % (4-13); Mean Corpuscular HGB 30.5 pg (26.0-34.0); Mean Corpuscular HGB Conc 30.8 g/dL (31.5-36.5); Mean Corpuscular Volume 99 fL (80-100); Mean Platelet Volume 8.9 fL (9.1-12.4); NEUTROPHILS ABSOLUTE AUTO 5.09 K/mm3 (1.96-9.15); NEUTROPHILS PERCENT AUTO 72 % (41-73); Platelet Count 421 K/mm3 (150-400); RDW Coefficient Variation 19.6 % (11.7-14.2); RDW Standard Deviation 69.5 fL (35.1-46.3); Red Blood Cell Count 2.69 M/mm3 (3.80-5.20); White Blood Cell Count 7.03 K/mm3 (4.00-11.30)
[2024-03-08 20:00] LABS: Salicylate <1.7 mg/dL (2.8-20.0)
[2024-03-08 20:07] LABS: Alanine Aminotransfer (ALT/SGP 27 U/L (12-78); Albumin, Blood 3.3 g/dL (3.4-5.0); Albumin/Globulin Ratio 0.9 (0.8-1.8); Alk Phos 176 U/L (50-136); Anion Gap 8 mmol/L (3-11); Aspartate Aminotrans (AST/SGOT 25 U/L (12-37); Bilirubin, Total 0.7 mg/dL (0.1-1.0); Blood Urea Nitrogen 22 mg/dL (8-24); CO2, Blood 28 mmol/L (21-32); Calcium, Blood 8.5 mg/dL (8.5-10.1); Chloride, Blood 108 mmol/L (98-108); Creatinine, Blood 0.63 mg/dL (0.40-1.00); Ethanol (Alcohol), Blood, Med <3 mg/dL; Globulin, Blood 3.5 g/dL (2.2-4.0); Glomerular Filtration Rate 121 (60-); Glucose, Blood 110 mg/dL (70-99); Potassium, Blood 3.5 mmol/L (3.5-5.5); Sodium, Blood 140 mmol/L (136-145); Total Protein, Blood 6.8 g/dL (6.4-8.2)
[2024-03-08 20:08] LABS: Acetaminophen, Random <2.0 ug/mL (10.0-30.0)
[2024-03-08] MEDS ORDERED: Melatonin 5 MG Tablet PO SCH (21:00)
[2024-03-08 21:02] LABS: Source, Urine Clean Catch
[2024-03-08 21:24] LABS: Appearance, Urine Hazy (Clear); Bilirubin, Urine Neg (Neg); Blood, Urine Neg (Neg); Color, Urine Yellow (P-Yellow); Glucose Qualitative, Urine Neg (Neg); Ketones, Urine Neg (Neg); Leukocyte Esterase, Urine 1+ (Neg); Nitrite, Urine Neg (Neg); Protein, Urine Neg (Neg); Specific Gravity, Urine 1.025 (1.003-1.022); Urobilinogen, Urine 2+ (Normal)
[2024-03-08 21:32] LABS: Bacteria Many /hpf; Red Blood Cells, Urine 0-2 /hpf (0-2); Squamous Epithelial Cells Many /hpf (Few)
[2024-03-08 21:36] LABS: U Amphetamine Screen DETECTED; U Barbituate Screen Not Detected; U Benzodiazapine Screen Not Detected; U Buprenorphine Screen Not Detected; U Cannabinoids Screen Not Detected; U Cocaine Screen Not Detected; U Methadone Screen Not Detected; U Methamphetamine Screen DETECTED; U Opiates Screen Not Detected; U Oxycodone Screen Not Detected; U Phencyclidine Screen Not Detected
[2024-03-08] MEDS ORDERED: Acetaminophen 500 MG Tab PO ONE (23:30)
[2024-03-08] MEDS ORDERED: Ibuprofen 600 MG Tab PO ONE (23:30)
[2024-03-09] MEDS ORDERED: Bisacodyl 10 MG Supp PR PRN (12:05)
[2024-03-09] MEDS ORDERED: Magnesium Hydroxide Conc 10 ML UDC PO PRN (12:05)
[2024-03-09] MEDS ORDERED: Acetaminophen 325 MG TABLET PO PRN (12:05)
[2024-03-09] MEDS ORDERED: Ondansetron 4 MG TAB PO PRN (12:05)
[2024-03-09] MEDS ORDERED: Melatonin 5 MG Tablet PO PRN (12:05)
[2024-03-09 17:20] VITALS: BP 109/70
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
[2024-03-09 20:23] VITALS: BP 112/73
[2024-03-09] MEDS ORDERED: Lactobacil 2-S.Thermo-Bifido 1 1 Cap PO SCH (21:00)
[2024-03-10 04:41] VITALS: BP 101/66
[2024-03-10 05:58] LABS: Hematocrit 27.2 % (33.0-51.0); Hemoglobin 8.5 g/dL (11.5-16.0); Mean Corpuscular HGB 30.5 pg (26.0-34.0); Mean Corpuscular HGB Conc 31.3 g/dL (31.5-36.5); Mean Corpuscular Volume 98 fL (80-100); Mean Platelet Volume 9.1 fL (9.1-12.4); Platelet Count 421 K/mm3 (150-400); RDW Coefficient Variation 18.9 % (11.7-14.2); RDW Standard Deviation 66.2 fL (35.1-46.3); Red Blood Cell Count 2.79 M/mm3 (3.80-5.20); White Blood Cell Count 7.08 K/mm3 (4.00-11.30)
[2024-03-10 06:34] LABS: Bun/Creatinine Ratio 29.1 (12.0-20.0); Calcium, Blood 8.6 mg/dL (8.5-10.1); Creatinine, Blood 0.52 mg/dL (0.40-1.00)
--- NOTE | 2024-03-10 06:41 | NUR ---
SHIFT SUMMARY: PATIENT FULLY ORIENTED, COOPERATIVE. PATIENT WAS DROWSY TONIGHT, SLEPT WELL. SI ORDER FOR MODERATE RISK. ACETAMINOPHEN GIVEN TWICE FOR RIGHT HIP PAIN. 1:1 SITTER.
[2024-03-10 07:23] VITALS: BP 105/64
[2024-03-10] MEDS ORDERED: Enoxaparin 40 MG/0.4 ML SYR SC SCH (09:00)
[2024-03-10] MEDS ORDERED: Methocarbamol 500 MG Tab PO PRN (10:50)
--- NOTE | 2024-03-10 12:27 | NUR ---
THIS RN PROVIDING BREAK COVERAGE FOR PRIMARY NURSE TODAY.
[2024-03-10 14:51] VITALS: BP 101/63
--- NOTE | 2024-03-10 15:03 | NUR ---
THIS RN PROVIDING BREAK COVERAGE FOR PRIMARY NURSE TODAY. UPTWIST SPINNER ALERTED RN TO LOW BP. TREND WNL. NO CONCERNS AT THIS TIME. PRIMARY RN TO BE NOTIFIED.
--- NOTE | 2024-03-10 18:24 | NUR ---
SHIFT SUMMARY PATIENT ALERT AND INTERACTIVE. PATIENT WALKING IN HALLS WITH WALKER. PATIENT CONTINUES TO GET TEARFUL RELATED TO HIP FX AND EVENTS LEADING UP TO HOSPITALIZATION. PATIENT CONTINUES TO DENY BEING SUICIDAL. PATIENT STATES THAT SHE IS GOING TO WORK ON PUTTING HERSELF FIRST. PATIENT SPOKE WITH FAMILY VIA PHONE WHILE SUPERVISED. FAMILY STATING THAT THEY WOULD COME SEE HER BUT NO VISITORS THIS SHIFT.
[2024-03-10 19:32] VITALS: BP 112/57
[2024-03-10] MEDS ORDERED: rOPINIRole HCl 0.25 MG Tab PO SCH (21:00)
[2024-03-11 03:09] VITALS: BP 105/68
[2024-03-11 07:29] VITALS: BP 110/71
[2024-03-11 15:11] VITALS: BP 107/54
--- NOTE | 2024-03-11 19:21 | NUR ---
REPORT RECEIVED VERIFIED A/O X 4 VERY PLEASENT FOLLOWS COMMANDS AND CAN MAKE NEEDS KNOWN. PT NOT HAVING ANY SUICIDAL THOUGHTS BUT DO TO PAST HISTORY PT WILL REMAIN HERE FOR NOW. MD INTO SEE PT, JEREMIAH REMOVED, CLEANSED WITH SALINE AND RE ENFORCED WITH STERI STRIPS. PT COMFORTABLE WITH NO PAIN. NO CHANGE IN CONDITION.
[2024-03-11 19:27] VITALS: BP 111/65
[2024-03-12 04:13] VITALS: BP 108/68
--- NOTE | 2024-03-12 05:10 | NUR ---
SHIFT SUMMARY: NO ACUTE EVENTS. HAS 1:[address] FOR MOD SI AND PSYCH HOLD. NO OBVIOUS S/S OF METH WITHDRAWL. C/O RLE DISCOMFORT, MEDICATED WITH TYLENOL AND ROBAXIN. GETTING UP TO BR WITH FWW AND SURVEILLED BY SITTER. ON ROOM AIR. SLEPT ALMOST THE ENTIRETY OF THIS SHIFT.
[2024-03-12 07:21] VITALS: BP 109/60
--- NOTE | 2024-03-12 19:12 | NUR ---
report received verified, no change in pt condition. vss ambulating in [place] with walker and standby assist. john johnston saw pt and stated that tomorrow hold would mostlikly be removed and possibly discharged. pt calls appropriatly and makes needs known. sitter at bedside
[2024-03-12 20:10] VITALS: BP 107/71
[2024-03-13 03:28] VITALS: BP 100/60
[2024-03-13 05:09] LABS: BASOPHILS ABSOLUTE AUTO 0.03 K/mm3 (0.00-0.23); BASOPHILS PERCENT AUTO 0 % (0-2); EOSINOPHILS ABSOLUTE AUTO 0.19 K/mm3 (0.00-0.68); EOSINOPHILS PERCENT AUTO 2 % (0-6); Hematocrit 33.4 % (33.0-51.0); Hemoglobin 10.6 g/dL (11.5-16.0); IMMATURE GRAN ABSOLUTE AUTO 0.08 K/mm3 (0.00-0.10); IMMATURE GRAN PERCENT AUTO 1 % (0-1); LYMPHOCYTES PERCENT AUTO 18 % (21-46); MONOCYTES ABSOLUTE AUTO 0.75 K/mm3 (0.16-1.47); MONOCYTES PERCENT AUTO 9 % (4-13); Mean Corpuscular HGB 29.9 pg (26.0-34.0); Mean Corpuscular HGB Conc 31.7 g/dL (31.5-36.5); Mean Corpuscular Volume 94 fL (80-100); Mean Platelet Volume 8.7 fL (9.1-12.4); NEUTROPHILS ABSOLUTE AUTO 5.69 K/mm3 (1.96-9.15); NEUTROPHILS PERCENT AUTO 69 % (41-73); Platelet Count 499 K/mm3 (150-400); RDW Coefficient Variation 17.7 % (11.7-14.2); RDW Standard Deviation 61.2 fL (35.1-46.3); Red Blood Cell Count 3.54 M/mm3 (3.80-5.20); White Blood Cell Count 8.24 K/mm3 (4.00-11.30)
--- NOTE | 2024-03-13 05:09 | NUR ---
SHIFT SUMMARY PT A&OX4 AND ANSWERS QUESTIONS APPROPRIATELY. PT HAS 1 TO 1 SITTER FOR SI, PT REPORTS NO ACTIVE SI OR PLANS AND IS PLEASANT AND COOPERATIVE. PT RECEIVED HS MEDICATIONS. PT VSS, NO COMPLAINTS OF CP/PRESSURE OR SOB. PT MEDICATED FOR PAIN X1. NO ACUTE EVENTS AT THIS TIME. PT SPENT MOST OF SHIFT WITH EYES CLOSED AND RESPIRATIONS EVEN AND UNLABORED. PT LEFT IN A POSITION OF SAFETY WITH PROPER FALL PRECAUTIONS IN PLACE AND CALL LIGHT IN REACH.
[2024-03-13 05:38] LABS: Bun/Creatinine Ratio 35.9 (12.0-20.0); Calcium, Blood 8.9 mg/dL (8.5-10.1); Creatinine, Blood 0.61 mg/dL (0.40-1.00); Potassium, Blood 4.1 mmol/L (3.5-5.5)
[2024-03-13 07:36] VITALS: BP 109/73
--- NOTE | 2024-03-13 14:19 | NUR ---
MD INTO SEE PT , SHE WAS TAKEN OFF HOLD AND SI PRECAUSIONS DISCHARGE ORDERS GIVEN. PT PERSONAL MEDS RETREVIED FROM PHARMACY AND DISCHARGED.
== END 2024-03-13 12:50 | disposition home or self-care (01) ==
LOC: ER 17:53 → EOR 17:54 → MEDS 17:54 → EOR 17:54 → MEDS 03-09 17:14
PROVIDERS: Hospitalist; Nurse Practitioner; ADMIT Emergency Medicine
DX: F43.12 Post-traumatic stress disorder, chronic (principal); F60.3 Borderline personality disorder; F15.10 Other stimulant abuse, uncomplicated; R45.851 Suicidal ideations; Z88.2 Allergy status to sulfonamides; Z88.8 Allergy status to other drugs, medicaments and biological substances; Z79.899 Other long term (current) drug therapy
CPT/HCPCS: 36415; 80048; 80053; 81001; 81025; 85025; 85027; 86592; 87086; 93005; 93010; 96372; 97110; 97116; 97162; 97165; 97530; 99285-25; A9270; G0378; G0480; J1650

== ENCOUNTER → 2024-09-14 | Outpatient (CLI) | payer OTHER ==
[~2024-09-14] MED LIST changes: +APHEN325 M2 PO; +ASPIRIN REGIMEN81 MG PO; +BACLOFEN10 M4 PO; +IBUP600 PO; +OXYC5; +Vitamin D1000 UNI1 PO
[2024-09-14 16:01] LABS: BASOPHILS ABSOLUTE AUTO 0.03 K/mm3 (0.00-0.23); BASOPHILS PERCENT AUTO 0 % (0-2); EOSINOPHILS ABSOLUTE AUTO 0.13 K/mm3 (0.00-0.68); EOSINOPHILS PERCENT AUTO 2 % (0-6); Hematocrit 44.1 % (33.0-51.0); Hemoglobin 14.7 g/dL (11.5-16.0); IMMATURE GRAN ABSOLUTE AUTO 0.03 K/mm3 (0.00-0.10); IMMATURE GRAN PERCENT AUTO 0 % (0-1); LYMPHOCYTES ABSOLUTE AUTO 1.15 K/mm3 (0.84-5.20); LYMPHOCYTES PERCENT AUTO 15 % (21-46); MONOCYTES ABSOLUTE AUTO 0.83 K/mm3 (0.16-1.47); MONOCYTES PERCENT AUTO 11 % (4-13); Mean Corpuscular HGB Conc 33.3 g/dL (31.5-36.5); Mean Corpuscular Volume 87 fL (80-100); Mean Platelet Volume 8.7 fL (9.1-12.4); NEUTROPHILS ABSOLUTE AUTO 5.75 K/mm3 (1.96-9.15); NEUTROPHILS PERCENT AUTO 73 % (41-73); Platelet Count 313 K/mm3 (150-400); RDW Coefficient Variation 12.7 % (11.7-14.2); Red Blood Cell Count 5.07 M/mm3 (3.80-5.20); White Blood Cell Count 7.92 K/mm3 (4.00-11.30)
[2024-09-14 16:12] LABS: Bun/Creatinine Ratio 11.4 (12.0-20.0); Calcium, Blood 8.8 mg/dL (8.5-10.1); Creatinine, Blood 0.79 mg/dL (0.40-1.00); Potassium, Blood 3.5 mmol/L (3.5-5.5)
== END ==
LOC: LAB 15:57 → LAB SHORT 15:57
PROVIDERS: Physician Assistant
DX: R11.2 Nausea with vomiting, unspecified (principal); R19.7 Diarrhea, unspecified
CPT/HCPCS: 80048; 85025

== ENCOUNTER 2025-03-04 22:26 | Emergency (ER) | payer OTHER ==
[~2025-03-04] VITALS: Ht 162.6 cm; Wt 92.1 kg
[2025-03-04 22:50] VITALS: BP 144/85
[2025-03-05] MEDS ORDERED: AMOCLA875 PO (00:24)
[2025-03-05] MEDS ORDERED: Amoxicillin/Clavulanate K 875 MG Tab PO ONE (00:25)
[2025-03-05] MEDS ORDERED: HYDROcodone 5-APAP 325 TAB PO ONE (00:25)
== END 2025-03-05 00:33 | disposition home or self-care (01) ==
LOC: ER 22:26
DX: K04.7 Periapical abscess without sinus (principal); S02.5XXA Fracture of tooth (traumatic), initial encounter for closed fracture; G43.909 Migraine, unspecified, not intractable, without status migrainosus; Z88.2 Allergy status to sulfonamides; Z88.8 Allergy status to other drugs, medicaments and biological substances; Z91.013 Allergy to seafood; Z91.040 Latex allergy status; Z91.018 Allergy to other foods; Z79.82 Long term (current) use of aspirin; Z79.899 Other long term (current) drug therapy; X58.XXXA Exposure to other specified factors, initial encounter
CPT/HCPCS: 99282; A9270

== ENCOUNTER → 2025-08-01 | Outpatient (CLI) | payer OTHER ==
[~2025-08-01] MED LIST changes: +AMOCLA875 PO
== END | disposition home or self-care (01) ==
LOC: LAB SHORT 08:53 → LAB 08:53
DX: N39.0 Urinary tract infection, site not specified (principal)
CPT/HCPCS: 87086